=== PATIENT | male | born 1995 | race Caucasian/White ===

== ENCOUNTER 2020-08-11 15:50 | Emergency (ER) | payer BC ==
[2020-08-11] MEDS ORDERED: Lidocaine 2% w/Epinephrine 1:200K 20 ML VIAL ONE (16:08)
--- NOTE | 2020-08-11 16:17 | RAD ---
EXAM: XR Hand Rt 3 View STANDARD PROVIDED CLINICAL HISTORY: Pain status post injury COMPARISON: None FINDINGS: There are obliquely oriented, nondisplaced fractures involving the third and fourth metacarpal bases. There is dorsal dislocation of the fifth metacarpal base with associated fracture is not definitely evident. Alignment appears otherwise anatomic. No additional fracture is seen. IMPRESSION: Nondisplaced fractures involving the third and fourth metacarpal bases with dorsal dislocation of the fifth metacarpal base.
[2020-08-11] MEDS ORDERED: Lidocaine 2% 20 ml MDV ONE (16:34)
[2020-08-11] MEDS ORDERED: Boostrix 0.5 ML (Tdap) VIAL ONE (17:47)
== END 2020-08-11 18:00 | disposition short-term general hospital (02) ==
LOC: MADERS 15:50
DX: S62.342A Nondisplaced fracture of base of third metacarpal bone, right hand, initial encounter for closed fracture (principal); S62.344A Nondisplaced fracture of base of fourth metacarpal bone, right hand, initial encounter for closed fracture; S63.064A Dislocation of metacarpal (bone), proximal end of right hand, initial encounter; S01.551A Open bite of lip, initial encounter; S01.411A Laceration without foreign body of right cheek and temporomandibular area, initial encounter; Z20.822 Contact with and (suspected) exposure to COVID-19; F17.290 Nicotine dependence, other tobacco product, uncomplicated; W54.0XXA Bitten by dog, initial encounter
CPT/HCPCS: 0240U; 12011; 90471; 90715